=== PATIENT | male | born 1995 | race Caucasian/White ===

== ENCOUNTER 2017-01-22 12:49 | Emergency (ER) | payer SELFPAY ==
[2017-01-22 14:02] VITALS: BP 141/76
== END 2017-01-22 14:35 | disposition home or self-care (01) ==
LOC: ED 12:49
DX: J98.01 Acute bronchospasm (principal); R03.0 Elevated blood-pressure reading, without diagnosis of hypertension; F17.210 Nicotine dependence, cigarettes, uncomplicated
CPT/HCPCS: J7512; J7613; J7644